=== PATIENT | female | born 1975 | race American Indian/Alaskan Native ===

== ENCOUNTER 2016-10-21 09:15 | Emergency (ER) | payer MEDICARE ==
[2016-10-21 09:33] VITALS: BMI 26.5
[2016-10-21 09:34] VITALS: BP 112/78; PULSE 93; RESP 18; TEMP 97.9; O2SAT 100
--- NOTE | 2016-10-21 09:57 | C.PDOC ---
History Of Present Illness 40 yo female, hx of asthma, presents with fever, cough, right ear pain. as per pt, started 2 days ago. as per pt, mild sore throat. pt has not used inhaler at home. no vomiting diarrhea or other complaints. Time Seen by Provider: 10/21/16 09:50 Chief Complaint (Nursing): Cough, Cold, Congestion Past Medical History Reviewed: Historical Data, Nursing Documentation, Vital Signs Vital Signs: Last Vital Signs Temp 97.9 F 10/21/16 09:33 Pulse 93 H 10/21/16 09:33 Resp 18 10/21/16 09:33 BP 112/78 10/21/16 09:33 Pulse Ox 100 10/21/16 09:33 - Medical History PMH: Asthma Surgical History: Cholecystectomy Family History: States: Unknown Family Hx - Social History Hx Tobacco Use: Yes Hx Alcohol Use: Yes Hx Substance Use: No - Immunization History Hx Tetanus Toxoid Vaccination: No Hx Influenza Vaccination: No Hx Pneumococcal Vaccination: No Review Of Systems Except As Marked, All Systems Reviewed And Found Negative. Constitutional: Positive for: Fever ENT: Positive for: Ear Pain (right) Respiratory: Positive for: Cough Physical Exam - Physical Exam Appears: Well, No Acute Distress Skin: Normal Color, Warm, Dry Eye(s): bilateral: Normal Inspection, PERRL, EOMI Ear(s): Right: TM Erythema Nose: Normal Throat: Erythema, No Exudate Neck: Normal Cardiovascular: Rhythm Regular Respiratory: Normal Breath Sounds Gastrointestinal/Abdominal: Normal Exam, Soft, No Tenderness, No Guarding, No Rebound Back: Normal Inspection Extremity: Normal ROM ED Course And Treatment O2 Sat by Pulse Oximetry: 100 Medical Decision Making Medical Decision Making: tristan tx om - pt well appearing, on video chat in er, ambulatory, speaking full sentences. lungs clear, no wheezing. Disposition - Disposition Disposition: HOME/ ROUTINE Disposition Time: 09:56 Condition: STABLE Additional Instructions: please follow up with your doctor. return to er withworsening symptoms or concerns. Prescriptions: Azithromycin [Zithromax] 250 mg PO DAILY #4 tab - Clinical Impression Clinical Impression: Upper respiratory infection, Otitis media
== END 2016-10-21 10:13 | disposition home or self-care (01) ==
LOC: C.ER 09:15
DX: J06.9 Acute upper respiratory infection, unspecified (principal); H66.91 Otitis media, unspecified, right ear; Z72.0 Tobacco use

== ENCOUNTER 2018-07-23 16:07 | Emergency (ER) | payer MEDICAID, MEDICARE ==
[2018-07-23 16:07] VITALS: BMI 26.5
[2018-07-23] MEDS ORDERED: SODIUM CHLORIDE 0.9% IV ONE (16:30)
[2018-07-23] MEDS ORDERED: Atropine-Diphenoxylate 0.025-2.5 mg Tab PO STA (16:31)
--- NOTE | 2018-07-23 16:32 | C.PDOC ---
History Of Present Illness 42 years old female presents to ED for complaints of cramping abdominal pain associated with nausea, vomiting, watery diarrhea, fever and chills that began today at 5AM. Denies any other complaints. <RickieAlyssa - Last Filed: 07/23/18 18:49> History Per: Patient History/Exam Limitations: no limitations Onset/Duration Of Symptoms: Hrs Current Symptoms Are (Timing): Still Present Location Of Pain/Discomfort: Diffuse Radiation Of Pain To:: None Associated Symptoms: Fever, Chills, Nausea, Vomiting, Diarrhea. denies: Urinary Symptoms Exacerbating Factors: None Alleviating Factors: None Last Bowel Movement: Today Recent travel outside of the [place]: No Abnormal Vaginal Bleeding: No <Alyssa Damian - Last Filed: 07/23/18 18:49> <Nancy May - Last Filed: 07/23/18 21:33> Time Seen by Provider: 07/23/18 16:22 Chief Complaint (Nursing): Abdominal Pain Past Medical History Reviewed: Historical Data, Nursing Documentation, Vital Signs Vital Signs: Last Vital Signs Temp 97.4 F L 07/23/18 16:17 Pulse 76 07/23/18 16:17 Resp 16 07/23/18 16:17 BP 157/96 H 07/23/18 16:17 Pulse Ox 100 07/23/18 16:17 - Medical History PMH: Asthma Denies: Chronic Kidney Disease Surgical History: Cholecystectomy Family History: States: Unknown Family Hx - Social History Hx Tobacco Use: Yes Hx Alcohol Use: Yes Hx Substance Use: Yes - Immunization History Hx Tetanus Toxoid Vaccination: Yes Hx Influenza Vaccination: No Hx Pneumococcal Vaccination: No <RickieAlyssa - Last Filed: 07/23/18 18:49> Vital Signs: Last Vital Signs Temp 97.7 F 07/23/18 18:52 Pulse 68 07/23/18 19:15 Resp 20 07/23/18 19:15 BP 124/72 07/23/18 19:15 Pulse Ox 97 07/23/18 19:15 <Nancy May - Last Filed: 07/23/18 21:33> Review Of Systems Constitutional: Positive for: Fever, Chills Gastrointestinal: Positive for: Nausea, Vomiting, Abdominal Pain, Diarrhea. Negative for: Constipation Genitourinary: Negative for: Dysuria Skin: Negative for: Rash Neurological: Negative for: Weakness, Numbness <Alyssa Damian - Last Filed: 07/23/18 18:49> Physical Exam - Physical Exam Appears: Non-toxic, In Acute Distress (Mild ) Skin: Normal Color, Warm, Dry, No Rash Head: Atraumatic, Normacephalic Eye(s): bilateral: Normal Inspection, PERRL, EOMI Oral Mucosa: Moist Neck: Normal ROM, Supple Chest: Symmetrical, No Tenderness Cardiovascular: Rhythm Regular, No Murmur Respiratory: Normal Breath Sounds, No Rales, No Rhonchi, No Wheezing, Other (NARD) Gastrointestinal/Abdominal: Normal Exam, Bowel Sounds (Active ), Soft, No Tenderness Extremity: Normal ROM Extremity: Bilateral: Atraumatic, Normal Color And Temperature, Normal ROM Pulses: Left Radial: Normal, Right Radial: Normal Neurological/Psych: Oriented x3, Normal Speech <Alyssa Damian - Last Filed: 07/23/18 18:49> ED Course And Treatment - Laboratory Results Result Diagrams: 07/23/18 16:44 07/23/18 16:44 O2 Sat by Pulse Oximetry: 100 (RA) Pulse Ox Interpretation: Normal - Other Rad CXR X-Ray: Viewed By Me, Read By Radiologist Interpretation: Date of service: 07/23/2018. HISTORY: Fever. COMPARISON: No prior. TECHNIQUE: Chest PA and lateral. FINDINGS: LUNGS: No active pulmonary disease. PLEURA: No significant pleural effusion identified. No pneumothorax apparent. CARDIOVASCULAR: No aortic atherosclerotic calcification present. Normal cardiac size. No pulmonary vascular congestion. OSSEOUS STRUCTURES: No significant abnormalities. VISUALIZED UPPER ABDOMEN: Normal. OTHER FINDINGS: None. IMPRESSION: No acute cardiopulmonary disease a ppreciated. <Alyssa Damian - Last Filed: 07/23/18 18:49> - Laboratory Results Result Diagrams: 07/23/18 16:44 07/23/18 16:44 ECG: Interpreted By Me, Viewed By Me ECG Rhythm: Sinus Rhythm (54) Pulse Ox Interpretation: Normal Reevaluation Time: 21:24 Reassessment Condition: Improved <Nancy May - Last Filed: 07/23/18 21:33> Progress - Re-Evaluation Re-evaluation Note: 07/23/18 18:25 NOW REPORTS R FLANK PAIN X 1 WEEK. HO KIDNEY STONES. PS WAS IGNORING IT BUT NOW W GEN BODY PAIN. +DYSURIA. <Alyssa Damian - Last Filed: 07/23/18 18:49> Medical Decision Making Medical Decision Making: Plan: * Morphine * IV Fluids * Lomotil * Zofran * Blood work * CXR * Urinalysis * Flu AB Swab <Alyssa Damian - Last Filed: 07/23/18 18:49> Medical Decision Making: Upon provider reevaluation patient is feeling better, is medically stable, and requires no further treatment in the ED at this time. Patient will be discharged home with Rx for macrobid, zofran . Counseling was provided and all questions were answered regarding diagnosis and need for follow up with the referred clinic. There is agreement to discharge plan. Return if symptoms persist or worsen. <Nancy May - Last Filed: 07/23/18 21:33> Disposition - Disposition Disposition Time: 19:00 <Alyssa Damian - Last Filed: 07/23/18 18:49> Counseled Patient/Family Regarding: Studies Performed, Diagnosis, Need For Followup, Rx Given <Nancy May - Last Filed: 07/23/18 21:33> - Disposition Referrals: [facility] [Outside] [facility] [Outside] Disposition: HOME/ ROUTINE Condition: STABLE Additional Instructions: Please return if symptoms recur Prescriptions: Nitrofurantoin Macrocrystals [Macrobid] 1 cap PO BID #14 cap Ondansetron ODT [Zofran ODT] 1 odt PO BID PRN #6 odt PRN Reason: Nausea/Vomiting Instructions: Urinary Tract Infection, Adult (DC), Uterine Fibroids (DC) Forms: [facility] (Cameroonian), Work Excuse - Clinical Impression Clinical Impression: Flank pain, Abdominal pain, Fibroids - Scribe Statement The provider has reviewed the documentation as recorded by the Maiteibhaleigh Gore All medical record entries made by the Scribe were at my direction and personally dictated by me. I have reviewed the chart and agree that the record accurately reflects my personal performance of the history, physical exam, medical decision making, and the department course for this patient. I have also personally directed, reviewed, and agree with the discharge instructions and disposition. <RickieAlyssa - Last Filed: 07/23/18 18:49> Physician Patient Turnover Patient Signed Over To: Nancy May Handoff Comments: FU CT, DISPO <Alyssa Damian - Last Filed: 07/23/18 18:49>
[2018-07-23 16:47] LABS: BASO % 0.3 % (0.0-2.0); HEMOGLOBIN 13.7 g/dL (11.0-16.0); LYMPH # 0.5 K/uL (1.0-4.3); LYMPH % 5.5 % (20.0-40.0); MEAN CELL VOLUME 91.8 fL (81.0-99.0); MEAN CORPUSCULAR HEMOGLOBIN 30.2 pg (27.0-31.0); MEAN CORPUSCULAR HGB CONC 32.9 g/dL (33.0-37.0); MEAN PLATELET VOLUME 8.8 fL (7.2-11.7); MONO # 0.3 K/uL (0.0-0.8); MONO % 3.7 % (0.0-10.0); NEUT # 7.8 K/uL (1.8-7.0); NEUT % 90.5 % (50.0-75.0); PLATELET COUNT 258 K/uL (130-400); RBC 4.55 Mil/uL (3.80-5.20); RED CELL DISTRIBUTION WIDTH 15.8 % (11.5-14.5); WHITE BLOOD COUNT 8.6 K/uL (4.8-10.8)
[2018-07-23] MEDS ORDERED: Sodium Chloride 0.9% 1,000 ML ONE (16:49)
[2018-07-23] MEDS ORDERED: Atropine-Diphenoxylate 0.025-2.5 mg Tab ONE (16:49)
[2018-07-23 17:00] LABS: SQUAMOUS EPITHIAL 11 /hpf (0-5); URINE BACTERIA OCC (<OCC); URINE BILIRUBIN NEGATIVE (NEGATIVE); URINE BLOOD 2+ (NEGATIVE); URINE CLARITY Hazy (Clear); URINE COLOR Yellow (YELLOW); URINE GLUCOSE (UA) NORMAL (Normal); URINE LEUKOCYTE ESTERASE NEG Leu/uL (Negative); URINE PROTEIN 2+ mg/dL (NEGATIVE); URINE UROBILINOGEN NORMAL mg/dL (0.2-1.0)
[2018-07-23 17:01] LABS: ALB/GLOB RATIO 1.3 (1.0-2.1); ALBUMIN 4.4 g/dL (3.5-5.0); BLOOD UREA NITROGEN 11 mg/dL (7-17); CALCIUM 8.5 mg/dl (8.6-10.4); GFR NON-AFRICAN AMERICAN > 60
[2018-07-23 17:06] LABS: ALT/SGPT 26 U/L (9-52); AST/SGOT 33 U/L (14-36)
--- NOTE | 2018-07-23 17:13 | RAD ---
Date of service: 07/23/2018 HISTORY: Fever COMPARISON: No prior. TECHNIQUE: Chest PA and lateral FINDINGS: LUNGS: No active pulmonary disease. PLEURA: No significant pleural effusion identified. No pneumothorax apparent. CARDIOVASCULAR: No aortic atherosclerotic calcification present. Normal cardiac size. No pulmonary vascular congestion. OSSEOUS STRUCTURES: No significant abnormalities. VISUALIZED UPPER ABDOMEN: Normal. OTHER FINDINGS: None. IMPRESSION: No acute cardiopulmonary disease appreciated.
[2018-07-23 17:26] LABS: BANDS 4 % (0-2); LYMPHOCYTE 2 % (20-40); MONOCYTE 2 % (0-10); NEUTROPHIL 92 % (50-75); TOTAL CELLS COUNTED 100
[2018-07-23 17:27] LABS: PLATELET ESTIMATE NORMAL (NORMAL)
[2018-07-23 18:23] LABS: INR 1.1; PROTHROMBIN TIME 12.4 SECONDS (9.7-12.2)
[2018-07-23 18:38] LABS: VENOUS BLOOD GAS BASE EXCESS -15.7 mmol/L (0.0-2.0); VENOUS BLOOD GAS PCO2 32 mmHg (40-60); VENOUS BLOOD GAS PO2 54 mm/Hg (30-55); VENOUS BLOOD PH 7.17 (7.32-7.43)
[2018-07-23] MEDS ORDERED: Iohexol 240 (50 ml) ONE (18:42)
[2018-07-23 18:53] VITALS: TEMP 97.7
[2018-07-23] MEDS ORDERED: Iodixanol 320 MG/ML 100 ML BOTTLE IV ONE (18:58)
[2018-07-23] MEDS ORDERED: Sodium Chloride 0.9% 1,000 ML IV ONE (19:20)
[2018-07-23 20:33] VITALS: PULSE 68
[2018-07-23 22:03] VITALS: BP 116/78; RESP 18; O2SAT 100
--- NOTE | 2018-07-24 10:56 | CT ---
Date of service: 07/23/2018 PROCEDURE: CT Abdomen and Pelvis with contrast HISTORY: R FLANK PAIN, FEVER COMPARISON: None. TECHNIQUE: Contrast dose: Radiation dose: Total exam DLP = 850.47 mGy-cm. This CT exam was performed using one or more of the following dose reduction techniques: Automated exposure control, adjustment of the mA and/or kV according to patient size, and/or use of iterative reconstruction technique. FINDINGS: LOWER THORAX: Small hiatal hernia. LIVER: Unremarkable. No gross lesion or ductal dilatation. GALLBLADDER AND BILE DUCTS: Cholecystectomy. PANCREAS: Unremarkable. No gross lesion or ductal dilatation. SPLEEN: Two peripherally calcified nonspecific cystic lesions in the spleen. ADRENALS: Unremarkable. No mass. KIDNEYS AND URETERS: Unremarkable. No hydronephrosis. No solid mass. VASCULATURE: Unremarkable. No aortic aneurysm. No aortic atherosclerotic calcification or mural plaque present. BOWEL: Unremarkable. No obstruction. No gross mural thickening. APPENDIX: Normal appendix. PERITONEUM: Unremarkable. No free fluid. No free air. LYMPH NODES: Unremarkable. No enlarged lymph nodes. BLADDER: Unremarkable. REPRODUCTIVE: Leiomyomatous uterus. Suspect small dermoid in the right ovary. This measures roughly 3 centimeters. Minimal free fluid in the pelvis. BONES: No acute fracture. OTHER FINDINGS: None. IMPRESSION: Two peripherally calcified nonspecific cystic lesions in the spleen. Leiomyomatous uterus. Suspect small dermoid in the right ovary. This measures roughly 3 centimeters. Minimal free fluid in the pelvis.
--- NOTE | 2018-07-24 19:35 | CARD ---
APPROVED REPORT Date of service: 07/23/2018 EKG Measurement Heart [id number] <Conclusion> Sinus bradycardia Otherwise normal ECG
== END 2018-07-23 21:30 | disposition home or self-care (01) ==
LOC: C.ER 16:07
DX: D25.9 Leiomyoma of uterus, unspecified (principal); R10.9 Unspecified abdominal pain; Z72.0 Tobacco use
CPT/HCPCS: 71046; 74177; 80053; 81001; 82803; 83735; 84100; 85025; 85610; 85730; 87040; 87086; 87804; 93005; 96372; 96374; 96375; 99285; J0780; J2270; J2405; J7030; Q9967

== ENCOUNTER 2018-12-23 07:06 | Inpatient (IN) | payer MEDICARE ==
[2018-12-23 07:21] VITALS: BMI 27.4
[2018-12-23] MEDS ORDERED: Sodium Chloride 0.9% 1,000 ML IV STA ×2 (07:54→08:59)
[2018-12-23] MEDS ORDERED: Sodium Chloride 0.9% 1,000 ML ONE ×2 (08:02→08:36)
[2018-12-23 08:41] LABS: BASO # 0.1 K/uL (0.0-0.2); BASO % 0.5 % (0.0-2.0); HEMOGLOBIN 13.3 g/dL (11.0-16.0); LYMPH # 1.5 K/uL (1.0-4.3); LYMPH % 12.5 % (20.0-40.0); MEAN CELL VOLUME 90.7 fL (81.0-99.0); MEAN CORPUSCULAR HEMOGLOBIN 30.9 pg (27.0-31.0); MEAN CORPUSCULAR HGB CONC 34.1 g/dL (33.0-37.0); MEAN PLATELET VOLUME 8.8 fL (7.2-11.7); MONO # 0.4 K/uL (0.0-0.8); MONO % 3.8 % (0.0-10.0); NEUT # 9.8 K/uL (1.8-7.0); NEUT % 83.2 % (50.0-75.0); NRBC % 0.1 % (0.0-2.0); RBC 4.3 Mil/uL (3.80-5.20); RED CELL DISTRIBUTION WIDTH 16.8 % (11.5-14.5); WHITE BLOOD COUNT 11.7 K/uL (4.8-10.8)
[2018-12-23 08:47] LABS: HCG,QUALITATIVE URINE NEGATIVE (NEGATIVE)
[2018-12-23 08:49] LABS: ALB/GLOB RATIO 1.5 (1.0-2.1); ALBUMIN 5.4 g/dL (3.5-5.0); ALT/SGPT 17 U/L (9-52); AST/SGOT 35 U/L (14-36); BLOOD UREA NITROGEN 9 mg/dL (7-17); CALCIUM 9.7 mg/dl (8.6-10.4); GFR NON-AFRICAN AMERICAN > 60; LIPASE 167 U/L (23-300)
[2018-12-23 08:59] LABS: SQUAMOUS EPITHIAL 1 /hpf (0-5); URINE AMORPHOUS SEDIMENT MODERATE /ul (<OCC); URINE BILIRUBIN NEGATIVE (NEGATIVE); URINE BLOOD 2+ (NEGATIVE); URINE CLARITY Turbid (Clear); URINE COLOR Yellow (YELLOW); URINE GLUCOSE (UA) NORMAL (Normal); URINE LEUKOCYTE ESTERASE NEG Leu/uL (Negative); URINE PROTEIN 2+ mg/dL (NEGATIVE); URINE UROBILINOGEN NORMAL mg/dL (0.2-1.0)
[2018-12-23] MEDS ORDERED: Belladonna-Phenobarbital PO STA (09:21)
--- NOTE | 2018-12-23 09:21 | C.PDOC ---
History Of Present Illness 43 y/o female presents to ED complaining of cramping abdominal pain that started at 3am today. States she drank one glass of wine last night. Reports that she woke up at 3am and had an episode of vomiting and had diarrhea later in the morning. She denies fever, chills, dysuria, hematuria, back pain, or other complaints. Time Seen by Provider: 12/23/18 07:10 Chief Complaint (Nursing): Abdominal Pain History Per: Patient History/Exam Limitations: no limitations Onset/Duration Of Symptoms: Hrs Current Symptoms Are (Timing): Still Present Past Medical History Reviewed: Historical Data, Nursing Documentation, Vital Signs Vital Signs: Last Vital Signs Temp 98 F 12/23/18 07:15 Pulse 68 12/23/18 07:15 Resp 18 12/23/18 07:15 BP 147/73 12/23/18 07:15 Pulse Ox 97 12/23/18 07:15 Primary Care Provider: FAMILY PROVIDER,NO - Medical History PMH: Asthma Denies: Chronic Kidney Disease Surgical History: Appendectomy Denies: Cholecystectomy (pt denies) Family History: States: No Known Family Hx - Social History Hx Tobacco Use: Yes Hx Alcohol Use: Yes Hx Substance Use: Yes - Immunization History Hx Tetanus Toxoid Vaccination: Yes Hx Influenza Vaccination: No Hx Pneumococcal Vaccination: No Review Of Systems Except As Marked, All Systems Reviewed And Found Negative. Constitutional: Negative for: Fever, Chills Gastrointestinal: Positive for: Vomiting, Abdominal Pain (cramping), Diarrhea. Negative for: Nausea Genitourinary: Negative for: Dysuria, Hematuria Musculoskeletal: Negative for: Back Pain Physical Exam - Physical Exam Appears: Non-toxic, No Acute Distress, Other (dry heaving, actively vomiting) Skin: Warm, Dry Head: Normacephalic Eye(s): bilateral: Normal Inspection Oral Mucosa: Moist Neck: Supple Cardiovascular: Rhythm Regular, No Murmur Respiratory: Normal Breath Sounds, No Rales, No Rhonchi, No Wheezing Gastrointestinal/Abdominal: Soft, No Tenderness, No Guarding, No Rebound Rectal: Blood Streaked Stool, Hemorrhoids (external) Extremity: Bilateral: Normal Color And Temperature Neurological/Psych: Oriented x3, Normal Speech ED Course And Treatment - Laboratory Results Result Diagrams: 12/23/18 08:27 12/23/18 08:27 Lab Results: Total Bilirubin 0.5 mg/dL (0.2-1.3) 12/23/18 08:27 AST 35 U/L (14-36) 12/23/18 08:27 ALT 17 U/L (9-52) 12/23/18 08:27 Alkaline Phosphatase 95 U/L (38-126) 12/23/18 08:27 Total Protein 9.0 g/dL (6.3-8.3) H 12/23/18 08:27 Albumin 5.4 g/dL (3.5-5.0) H D 12/23/18 08:27 Globulin 3.7 gm/dL (2.2-3.9) 12/23/18 08:27 Albumin/Globulin Ratio 1.5 (1.0-2.1) 12/23/18 08: Lipase 167 U/L (23-300) 12/23/18 08:27 Urine Color Yellow (YELLOW) 12/23/18 08:27 Urine Clarity Turbid (Clear) 12/23/18 08:27 Urine pH 5.0 (5.0-8.0) 12/23/18 08:27 Ur Specific [place] 1.030 (1.003-1.030) 12/23/18 08:27 Urine Protein 2+ mg/dL (NEGATIVE) H 12/23/18 08:27 Urine Glucose (UA) Normal mg/dL (Normal) 12/23/18 08:27 Urine Ketones 1+ mg/dL (NEGATIVE) H 12/23/18 08:27 Urine Blood 2+ (NEGATIVE) H 12/23/18 08:27 Urine Nitrate Negative (NEGATIVE) 12/23/18 08:27 Urine Bilirubin Negative (NEGATIVE) 12/23/18 08:27 Urine Urobilinogen Normal mg/dL (0.2-1.0) 12/23/18 08:27 Ur Leukocyte Esterase Neg Aminata/uL (Negative) 12/23/18 08:27 Urine RBC (Auto) 43 /hpf (0-3) H 12/23/18 08:27 Ur Squamous Epith Cells 1 /hpf (0-5) 12/23/18 08:27 Amorphous Sediment Moderate /ul (<OCC) H 12/23/18 08:27 Urine HCG, Qual Negative (NEGATIVE) 12/23/18 08:27 Urine HCG, Qual Negative (NEGATIVE) 12/23/18 08:27 O2 Sat by Pulse Oximetry: 97 (RA) Pulse Ox Interpretation: Normal Progress Note: Patient given fluids, zofran, still active vomiting, given reglan. Patient c/o abdominal crams and multiple episode of diarrhea mixed with blood. Patient was given 3L IVF boluses. On re-evaluation, patient is not feeling better, however she stopped vomiting, but still has diarrhea. Gave po. On re-evaluation she still c/o severe cramps. CT abdomenwith IV contrast ordered and pos for pancolitis. Flagyl and Cipro IV started. case was d/w and patient was accepted to [facility]. Disposition - Disposition Disposition: HOSPITALIZED Disposition Time: 14:16 Condition: FAIR - Clinical Impression Clinical Impression: Abdominal pain, Diarrhea, Pancolitis, Vomiting - PA / [employer] / Resident Statement MD/DO has reviewed & agrees with the documentation as recorded. - Scribe Statement The provider has reviewed the documentation as recorded by the Scribhaleigh White All medical record entries made by the Scribe were at my direction and personally dictated by me. I have reviewed the chart and agree that the record accurately reflects my personal performance of the history, physical exam, medical decision making, and the department course for this patient. I have also personally directed, reviewed, and agree with the discharge instructions and disposition. Decision To Admit - Pt Status Changed To: Hospital Disposition Of: Inpatient - Admit Certification Admit to Inpatient:: After my assessment, the patient will require hospitalization for at least two midnights. This is because of the severity of symptoms shown, intensity of services needed, and/or the medical risk in this patient being treated as an outpatient. - InPatient: Physician Admission Certification:: patientb will need IV antibiotics for more than 2 days - . Bed Request Type: Regular Admitting Physician: Patricia Graves Patient Diagnosis: Abdominal pain, Diarrhea, Pancolitis, Vomiting
[2018-12-23] MEDS ORDERED: Belladonna-Phenobarbital ONE (09:26)
[2018-12-23] MEDS ORDERED: Lactated Ringer's 1,000 ML IV ONE (10:54)
[2018-12-23] MEDS ORDERED: Lactated Ringer's 1,000 ML ONE (11:16)
[2018-12-23] MEDS ORDERED: Iodixanol 320 MG/ML 100 ML BOTTLE IV ONE (12:42)
--- NOTE | 2018-12-23 13:56 | CT ---
Date of service: 12/23/2018 PROCEDURE: CT Abdomen and Pelvis with contrast HISTORY: ABD PAIN COMPARISON: Comparison is made to the previous study dated 07/23/2018 TECHNIQUE: Contrast dose: 100 mL of Visipaque 320 intravenously. Radiation dose: Total exam DLP = 467.58 mGy-cm. This CT exam was performed using one or more of the following dose reduction techniques: Automated exposure control, adjustment of the mA and/or kV according to patient size, and/or use of iterative reconstruction technique. FINDINGS: LOWER THORAX: Unremarkable. LIVER: Hepatomegaly and mild diffuse low-attenuation of the liver are again noted. GALLBLADDER AND BILE DUCTS: Status post cholecystectomy. PANCREAS: Unremarkable. No gross lesion or ductal dilatation. SPLEEN: Again noted 2 adjacent cystic lesions contains foci of calcification at the peripheral portion in the spleen with the largest lesion measures 3.2 x 3.2 centimeter. ADRENALS: Unremarkable. No mass. KIDNEYS AND URETERS: Unremarkable. No hydronephrosis. No solid mass. VASCULATURE: Unremarkable. No aortic aneurysm. No aortic atherosclerotic calcification or mural plaque present. BOWEL: There is a suspicious for diffuse large bowel wall thickening suggestive of pancolitis. No evidence of bowel obstruction. APPENDIX: No evidence of appendicitis. PERITONEUM: There is a trace amount of free fluid in the pelvis noted. No evidence of free air. LYMPH NODES: Unremarkable. No enlarged lymph nodes. BLADDER: The urinary bladder is not distended therefore cannot be evaluated. REPRODUCTIVE: Again noted is complex mass lesion at the right adnexa likely represent dermoid cyst measures 3.3 centimeter. BONES: No acute fracture. OTHER FINDINGS: None. IMPRESSION: Findings suggestive of pancolitis. Please correlate clinically. No evidence of other acute pathology in the abdomen and pelvis.
[2018-12-23] MEDS ORDERED: Ciprofloxacin 400mg/200ml D5W 400 MG/200 ML BAG IV STA (14:14)
[2018-12-23] MEDS ORDERED: metroNIDAZOLE IV 500 mg/100 ml 500 MG/100 ML BAG IV STA (14:14)
[2018-12-23] MEDS ORDERED: metroNIDAZOLE IV 500 mg/100 ml 500 MG/100 ML BAG ONE (14:23)
[2018-12-23] MEDS: Sodium Chloride 0.9% 1,000 ML IV SCH (17:17)
--- NOTE | 2018-12-23 17:30 | CP.PCM.HP ---
Past Patient History - Infectious Disease Hx of Infectious Diseases: None - Past Social History Smoking Status: Light Smoker < 10 Cigarettes Daily - CARDIAC Hx Cardiac Disorders: No - PULMONARY Hx Asthma: Yes - NEUROLOGICAL Hx Neurological Disorder: No - HEENT Hx HEENT Problems: No - RENAL Hx Chronic Kidney Disease: No - ENDOCRINE/METABOLIC Hx Endocrine Disorders: No - HEMATOLOGICAL/ONCOLOGICAL Hx Blood Disorders: No - INTEGUMENTARY Hx Dermatological Problems: No - MUSCULOSKELETAL/RHEUMATOLOGICAL Hx Musculoskeletal Disorders: No - GASTROINTESTINAL Hx Gastrointestinal Disorders: Yes Hx Ulcer: Yes - PSYCHIATRIC Hx Substance Use: Yes - SURGICAL HISTORY Hx Appendectomy: Yes Hx Cholecystectomy: No (pt denies) - ANESTHESIA Hx Anesthesia: Yes Hx Anesthesia Reactions: No Meds Allergies/Adverse Reactions: Allergies Allergy/AdvReac Type Severity Reaction Status Date / Time aspirin Allergy ANGIOEDEMA Verified 12/23/18 07:19 Penicillins Allergy Verified 12/23/18 07:19 Physical Exam - Constitutional Appears: Well - Head Exam Head Exam: ATRAUMATIC, NORMAL INSPECTION, NORMOCEPHALIC - Eye Exam Eye Exam: EOMI, Normal appearance, PERRL Pupil Exam: NORMAL ACCOMODATION, PERRL - ENT Exam ENT Exam: Mucous Membranes Moist, Normal Exam - Neck Exam Neck exam: Positive for: Normal Inspection - Respiratory Exam Respiratory Exam: Decreased Breath Sounds - Cardiovascular Exam Cardiovascular Exam: REGULAR RHYTHM, +S1, +S2 - GI/Abdominal Exam GI & Abdominal Exam: Diminished Bowel Sounds, Soft - Rectal Exam Rectal Exam: Deferred - Neurological Exam Neurological exam: Oriented x3 Results - Vital Signs Recent Vital Signs: Last Vital Signs Temp 98.7 F 12/23/18 15:06 Pulse 60 12/23/18 15:06 Resp 20 12/23/18 15:06 BP 150/90 12/23/18 15:06 Pulse Ox 100 12/23/18 15:06 - Labs Result Diagrams: 12/23/18 08:27 12/23/18 08:27 Labs: Laboratory Results - last 24 hr 12/23/18 12/23/18 12/23/18 08:27 08:27 08:27 WBC 11.7 H RBC 4.30 Hgb 13.3 Hct 39.0 MCV 90.7 MCH 30.9 MCHC 34.1 RDW 16.8 H Plt Count 338 MPV 8.8 Neut % (Auto) 83.2 H Lymph % (Auto) 12.5 L [place] % (Auto) 3.8 Eos % (Auto) 0.0 Baso % (Auto) 0.5 Neut # (Auto) 9.8 H Lymph # (Auto) 1.5 [place] # (Auto) 0.4 Eos # (Auto) 0.0 Baso # (Auto) 0.1 Sodium 140 Potassium 4.1 Chloride 109 H Carbon Dioxide 15 L Anion Gap 20 BUN 9 Creatinine 0.6 L Est GFR ( Amer) > 60 Est GFR (Non-Af Amer) > 60 Random Glucose 123 H Calcium 9.7 Total Bilirubin 0.5 AST 35 ALT 17 Alkaline Phosphatase 95 Total Protein 9.0 H Albumin 5.4 H D Globulin 3.7 Albumin/Globulin Ratio 1.5 Lipase 167 Urine Color Yellow Urine Clarity Turbid Urine pH 5.0 Ur Specific [place] 1.030 Urine Protein 2+ H Urine Glucose (UA) Normal Urine Ketones 1+ H Urine Blood 2+ H Urine Nitrate Negative Urine Bilirubin Negative Urine Urobilinogen Normal Ur Leukocyte Esterase Neg Urine RBC (Auto) 43 H Ur Squamous Epith Cells 1 Amorphous Sediment Moderate H Urine HCG, Qual Negative Alcohol, Quantitative < 10
[2018-12-23] MEDS: metroNIDAZOLE IV 500 mg/100 ml 500 MG/100 ML BAG IVPB SCH (22:23)
[2018-12-24] MEDS: Ciprofloxacin 400mg/200ml D5W 400 MG/200 ML BAG IVPB SCH ×2 (01:59→13:38)
[2018-12-24] MEDS: metroNIDAZOLE IV 500 mg/100 ml 500 MG/100 ML BAG IVPB SCH ×3 (05:55→21:14)
[2018-12-24 06:45] LABS: BARBITURATES, UR NEGATIVE (NEGATIVE); BENZODIAZEPINES, UR NEGATIVE (NEGATIVE)
[2018-12-24 06:47] LABS: OPIATES, UR POSITIVE (NEGATIVE); PHENCYCLIDINE, UR POSITIVE (NEGATIVE)
[2018-12-24] MEDS: Sodium Chloride 0.9% 1,000 ML IV SCH ×2 (08:26→14:15)
[2018-12-24 08:27] LABS: BASO % 0.3 % (0.0-2.0); LYMPH # 1.6 K/uL (1.0-4.3); LYMPH % 13.9 % (20.0-40.0); MEAN CELL VOLUME 90.4 fL (81.0-99.0); MEAN CORPUSCULAR HEMOGLOBIN 30.7 pg (27.0-31.0); MEAN CORPUSCULAR HGB CONC 33.9 g/dL (33.0-37.0); MEAN PLATELET VOLUME 8.7 fL (7.2-11.7); MONO % 8.3 % (0.0-10.0); NEUT # 9.1 K/uL (1.8-7.0); NEUT % 77.5 % (50.0-75.0); RBC 3.61 Mil/uL (3.80-5.20); RED CELL DISTRIBUTION WIDTH 16.8 % (11.5-14.5); WHITE BLOOD COUNT 11.7 K/uL (4.8-10.8)
[2018-12-24 08:33] LABS: HEMOGLOBIN 11.1 g/dL (11.0-16.0)
[2018-12-24 08:54] LABS: ALB/GLOB RATIO 1.3 (1.0-2.1); ALBUMIN 4.1 g/dL (3.5-5.0); ALT/SGPT 23 U/L (9-52); AST/SGOT 35 U/L (14-36); BLOOD UREA NITROGEN 10 mg/dL (7-17); CALCIUM 8.5 mg/dl (8.6-10.4); GFR NON-AFRICAN AMERICAN > 60
[2018-12-24] MEDS: Enoxaparin 40 mg Syringe SC SCH (09:15)
[2018-12-24] MEDS: Potassium & Sodium Phosphate PO SCH ×2 (09:15→17:05)
--- NOTE | 2018-12-24 09:18 | CP.PCM.CON ---
<Maddy Thomas - Last Filed: 12/24/18 09:12> History of Present Illness - History of Present Illness History of Present Illness: GI Fellow PGY5 Consult Note 43 y/o female with no significant pmhx presents to ED complaining of cramping abdominal pain that started at 2am yesterday. States she drank one glass of wine the night last night. Reports that she woke up and had an episodes of nausea/vomiting and had diarrhea later in the morning. She reports multiple episodes of bloody BM but nothing overnight. She is still having nausea and does not want to eat. She reports being at a cookout a day prior and eating hamburgers. No one else is sick, no recent travel, no sick contacts. She denies fever, chills, dysuria, hematuria, back pain, or other complaints. ROS: A 12pt ROS was negative except as above PmHx: As stated in HPI PshX: denies SH: social etoh, denies drugs, tobacco FH: neg for colon cancer Past Patient History - Infectious Disease Hx of Infectious Diseases: None - Past Medical History & Family History Past Medical History?: Yes - Past Social History Smoking Status: Light Smoker < 10 Cigarettes Daily - CARDIAC Hx Cardiac Disorders: No - PULMONARY Hx Asthma: Yes - NEUROLOGICAL Hx Neurological Disorder: No - HEENT Hx HEENT Problems: No - RENAL Hx Chronic Kidney Disease: No - ENDOCRINE/METABOLIC Hx Endocrine Disorders: No - HEMATOLOGICAL/ONCOLOGICAL Hx Blood Disorders: No - INTEGUMENTARY Hx Dermatological Problems: No - MUSCULOSKELETAL/RHEUMATOLOGICAL Hx Musculoskeletal Disorders: No - GASTROINTESTINAL Hx Gastrointestinal Disorders: Yes Hx Ulcer: Yes - GENITOURINARY/GYNECOLOGICAL Hx Genitourinary Disorders: No - PSYCHIATRIC Hx Substance Use: Yes - SURGICAL HISTORY Hx Appendectomy: Yes Hx Cholecystectomy: No (pt denies) - ANESTHESIA Hx Anesthesia: Yes Hx Anesthesia Reactions: No Meds Allergies/Adverse Reactions: Allergies Allergy/AdvReac Type Severity Reaction Status Date / Time aspirin Allergy ANGIOEDEMA Verified 12/23/18 07:19 Penicillins Allergy Verified 12/23/18 07:19 - Medications Medications: Current Medications Enoxaparin Sodium (Lovenox) 40 mg SC DAILY [facility] Metronidazole (Flagyl) 500 mg in 100 mls @ 100 mls/hr IVPB Q8H [facility]; Protocol Last Admin: 12/24/18 05:55 Dose: 100 mls/hr Sodium Chloride (Sodium Chloride 0.9%) 1,000 mls @ 100 mls/hr IV .Q10H [facility] Last Admin: 12/24/18 08:26 Dose: 100 mls/hr Ciprofloxacin (Cipro 400mg/200ml Dsw) 400 mg in 200 mls @ 133 mls/hr IVPB Q12H [facility]; Protocol Last Admin: 12/24/18 01:59 Dose: 133 mls/hr Morphine Sulfate (Morphine) 2 mg IVP Q4 PRN PRN Reason: Pain, moderate (4-7) Last Admin: 12/24/18 08:24 Dose: 2 mg Ondansetron HCl (Zofran Inj) 4 mg IVP Q6 PRN PRN Reason: Nausea/Vomiting Last Admin: 12/23/18 22:25 Dose: 4 mg Pantoprazole Sodium (Protonix Inj) 40 mg IVP Q12H [facility] Last Admin: 12/24/18 05:55 Dose: 40 mg Potassium Phos/Sodium Phos (Neutra-Phos) 1 pkt PO BID [facility] Stop: 12/27/18 10:01 Physical Exam - Constitutional Appears: Non-toxic, No Acute Distress - Head Exam Head Exam: ATRAUMATIC, NORMAL INSPECTION, NORMOCEPHALIC - Eye Exam Eye Exam: EOMI, Normal appearance, PERRL Pupil Exam: PERRL - ENT Exam ENT Exam: Mucous Membranes Moist, Normal Exam - Respiratory Exam Respiratory Exam: Clear to Auscultation Bilateral, NORMAL BREATHING PATTERN - Cardiovascular Exam Cardiovascular Exam: REGULAR RHYTHM, RRR, +S1, +S2 - GI/Abdominal Exam GI & Abdominal Exam: Normal Bowel Sounds, Soft, Tenderness. absent: Distended, Firm, Guarding, Organomegaly - Rectal Exam Rectal Exam: Deferred - Extremities Exam Extremities exam: Positive for: full ROM, normal inspection - Neurological Exam Neurological exam: Alert, Oriented x3 - Psychiatric Exam Psychiatric exam: Normal Affect, Normal Mood - Skin Skin Exam: Dry, Intact, Normal Color, Warm Results - Vital Signs Recent Vital Signs: Last Vital Signs Temp 98.1 F 12/24/18 07:00 Pulse 96 H 12/24/18 07:00 Resp 20 12/24/18 07:00 BP 135/56 L 12/24/18 07:00 Pulse Ox 100 12/24/18 07:00 - Labs Result Diagrams: 12/24/18 08:17 12/24/18 08:17 Labs: Laboratory Results - last 24 hr 12/24/18 12/24/18 12/24/18 06:05 08:17 08:17 WBC 11.7 H RBC 3.61 L Hgb 11.1 D Hct 32.6 L MCV 90.4 MCH 30.7 MCHC 33.9 RDW 16.8 H Plt Count 263 MPV 8.7 Neut % (Auto) 77.5 H Lymph % (Auto) 13.9 L [place] % (Auto) 8.3 Eos % (Auto) 0.0 Baso % (Auto) 0.3 Neut # (Auto) 9.1 H Lymph # (Auto) 1.6 [place] # (Auto) 1.0 H Eos # (Auto) 0.0 Baso # (Auto) 0.0 Sodium 135 Potassium 3.6 Chloride 104 Carbon Dioxide 23 Anion Gap 12 BUN 10 Creatinine 0.7 Est GFR ( Amer) > 60 Est GFR (Non-Af Amer) > 60 Random Glucose 119 H Calcium 8.5 L Phosphorus 2.1 L Magnesium 1.8 Total Bilirubin 1.1 AST 35 ALT 23 Alkaline Phosphatase 73 Total Protein 7.3 Albumin 4.1 Globulin 3.1 Albumin/Globulin Ratio 1.3 Urine Opiates Screen Positive H Urine Methadone Screen Negative Ur Barbiturates Screen Negative Ur Phencyclidine Scrn Positive H Ur Amphetamines Screen Negative U Benzodiazepines Scrn Negative U Oth Cocaine Metabols Negative U Cannabinoids Screen Positive H Assessment & Plan - Assessment and Plan (Free Text) Assessment: 1. Colitis-infectious 2. Abdominal pain 3. N/V/Diarrhea Plan: Continue supportive care with pain control, antiemetic IVF Clear liquid diet IV Cipro/Flagyl Stool infectious workup Will continue to monitor clinical course <Shayan Broussard Y - Last Filed: 12/24/18 10:07> Meds - Medications Medications: Current Medications Enoxaparin Sodium (Lovenox) 40 mg SC DAILY [facility] Last Admin: 12/24/18 09:15 Dose: 40 mg Metronidazole (Flagyl) 500 mg in 100 mls @ 100 mls/hr IVPB Q8H [facility]; Protocol Last Admin: 12/24/18 05:55 Dose: 100 mls/hr Sodium Chloride (Sodium Chloride 0.9%) 1,000 mls @ 100 mls/hr IV .Q10H [facility] Last Admin: 12/24/18 08:26 Dose: 100 mls/hr Ciprofloxacin (Cipro 400mg/200ml Dsw) 400 mg in 200 mls @ 133 mls/hr IVPB Q12H [facility]; Protocol Last Admin: 12/24/18 01:59 Dose: 133 mls/hr Morphine Sulfate (Morphine) 2 mg IVP Q4 PRN PRN Reason: Pain, moderate (4-7) Last Admin: 12/24/18 08:24 Dose: 2 mg Ondansetron HCl (Zofran Inj) 4 mg IVP Q6 PRN PRN Reason: Nausea/Vomiting Last Admin: 12/23/18 22:25 Dose: 4 mg Pantoprazole Sodium (Protonix Inj) 40 mg IVP Q12H [facility] Last Admin: 12/24/18 05:55 Dose: 40 mg Potassium Phos/Sodium Phos (Neutra-Phos) 1 pkt PO BID [facility] Stop: 12/27/18 10:01 Last Admin: 12/24/18 09:15 Dose: 1 pkt Results - Vital Signs Recent Vital Signs: Last Vital Signs Temp 98.1 F 12/24/18 07:00 Pulse 96 H 12/24/18 07:00 Resp 20 12/24/18 07:00 BP 135/56 L 12/24/18 07:00 Pulse Ox 100 12/24/18 07:00 - Labs Result Diagrams: 12/24/18 08:17 12/24/18 08:17 Labs: Laboratory Results - last 24 hr 12/24/18 12/24/18 12/24/18 06:05 08:17 08:17 WBC 11.7 H RBC 3.61 L Hgb 11.1 D Hct 32.6 L MCV 90.4 MCH 30.7 MCHC 33.9 RDW 16.8 H Plt Count 263 MPV 8.7 Neut % (Auto) 77.5 H Lymph % (Auto) 13.9 L [place] % (Auto) 8.3 Eos % (Auto) 0.0 Baso % (Auto) 0.3 Neut # (Auto) 9.1 H Lymph # (Auto) 1.6 [place] # (Auto) 1.0 H Eos # (Auto) 0.0 Baso # (Auto) 0.0 Sodium 135 Potassium 3.6 Chloride 104 Carbon Dioxide 23 Anion Gap 12 BUN 10 Creatinine 0.7 Est GFR ( Amer) > 60 Est GFR (Non-Af Amer) > 60 Random Glucose 119 H Calcium 8.5 L Phosphorus 2.1 L Magnesium 1.8 Total Bilirubin 1.1 AST 35 ALT 23 Alkaline Phosphatase 73 Total Protein 7.3 Albumin 4.1 Globulin 3.1 Albumin/Globulin Ratio 1.3 Urine Opiates Screen Positive H Urine Methadone Screen Negative Ur Barbiturates Screen Negative Ur Phencyclidine Scrn Positive H Ur Amphetamines Screen Negative U Benzodiazepines Scrn Negative U Oth Cocaine Metabols Negative U Cannabinoids Screen Positive H Attending/Attestation - Attestation I have personally seen and examined this patient.: Yes I have fully participated in the care of the patient.: Yes I have reviewed all pertinent clinical information: Yes Notes (Text): 12/24/18 10:03 I have seen and examined patient with GI fellow. Agree with above documentation with the following additions. In brief, this is a 43 year old female without significant medical history who presents to hospital with complaint of abdominal pain and diarrhea which began suddenly yesterday. Prior to this she was in usual state of health. Her symptoms began shortly after a cookout where she consumed hamburgers. She describes generalized abdominal pain, 7/10 intensity which was associated with multiple episodes of nausea, vomiting, diarrhea which later turned into bloody diarrhea. She denies fever/chills, weight loss, sick contacts, recent travel, or antibiotic use. No prior similar episodes or endoscopic evaluation. Abdominal pain, diarrhea - colitis, presumed infectious given clinical scenario - Liquid diet as tolerated - Continue with antibiotic therapy - Obtain stool studies - Patient would benefit from outpatient colonoscopy 6-8 weeks following resolution of acute colitis. Will continue to monitor patient clinical course.
--- NOTE | 2018-12-24 14:41 | CP.PCM.PN ---
Subjective - Date & Time of Evaluation Date of Evaluation: 12/24/18 Time of Evaluation: 10:10 - Subjective Subjective: patient examined today no nausea no vomiting no dizziness no diarrhea no fever no shortness of breath Objective - Vital Signs/Intake and Output Vital Signs (last 24 hours): Temp Pulse Resp BP Pulse Ox 98.1 F 96 H 20 135/56 L 100 12/24/18 07:00 12/24/18 07:00 12/24/18 07:00 12/24/18 07:00 12/24/18 07:00 Intake and Output: 12/24/18 12/24/18 06:59 18:59 Intake Total 300 1000 Balance 300 1000 - Medications Medications: Current Medications Enoxaparin Sodium (Lovenox) 40 mg SC DAILY [facility] Last Admin: 12/24/18 09:15 Dose: 40 mg Metronidazole (Flagyl) 500 mg in 100 mls @ 100 mls/hr IVPB Q8H [facility]; Protocol Last Admin: 12/24/18 13:36 Dose: 100 mls/hr Sodium Chloride (Sodium Chloride 0.9%) 1,000 mls @ 100 mls/hr IV .Q10H [facility] Last Admin: 12/24/18 14:15 Dose: Not Given Ciprofloxacin (Cipro 400mg/200ml Dsw) 400 mg in 200 mls @ 133 mls/hr IVPB Q12H [facility]; Protocol Last Admin: 12/24/18 13:38 Dose: 133 mls/hr Morphine Sulfate (Morphine) 2 mg IVP Q4 PRN PRN Reason: Pain, moderate (4-7) Last Admin: 12/24/18 12:59 Dose: 2 mg Ondansetron HCl (Zofran Inj) 4 mg IVP Q6 PRN PRN Reason: Nausea/Vomiting Last Admin: 12/24/18 13:03 Dose: 4 mg Pantoprazole Sodium (Protonix Inj) 40 mg IVP Q12H [facility] Last Admin: 12/24/18 05:55 Dose: 40 mg Potassium Phos/Sodium Phos (Neutra-Phos) 1 pkt PO BID [facility] Stop: 12/27/18 10:01 Last Admin: 12/24/18 09:15 Dose: 1 pkt - Labs Labs: 12/24/18 08:17 12/24/18 08:17 - Constitutional Appears: Well - Head Exam Head Exam: ATRAUMATIC, NORMAL INSPECTION, NORMOCEPHALIC - Eye Exam Eye Exam: EOMI, Normal appearance, PERRL Pupil Exam: NORMAL ACCOMODATION, PERRL - ENT Exam ENT Exam: Mucous Membranes Moist, Normal Exam - Neck Exam Neck Exam: Full ROM, Normal Inspection. absent: Lymphadenopathy - Respiratory Exam Respiratory Exam: Decreased Breath Sounds - Cardiovascular Exam Cardiovascular Exam: REGULAR RHYTHM, +S1, +S2 - GI/Abdominal Exam GI & Abdominal Exam: Soft, Diminished Bowel Sounds - Rectal Exam Rectal Exam: Deferred - Neurological Exam Neurological Exam: Oriented x3 Assessment and Plan - Assessment and Plan (Free Text) Plan: plan discussed with patient moderate complexity of care cipro flagyl lovenox morphine neutra-phos protonix inj sodium chloride zofran inj medications reviewed labs reviewed vitals reviewed
[2018-12-25] MEDS: Ciprofloxacin 400mg/200ml D5W 400 MG/200 ML BAG IVPB SCH ×2 (01:12→13:46)
[2018-12-25] MEDS: Sodium Chloride 0.9% 1,000 ML IV SCH ×3 (05:11→20:34)
[2018-12-25] MEDS: metroNIDAZOLE IV 500 mg/100 ml 500 MG/100 ML BAG IVPB SCH ×3 (05:12→21:04)
--- NOTE | 2018-12-25 07:52 | CP.PCM.PN ---
<Maddy Thomas - Last Filed: 12/25/18 07:50> Subjective - Date & Time of Evaluation Date of Evaluation: 12/25/18 Time of Evaluation: 07:00 - Subjective Subjective: GI Fellow PGY5 Progress Note Pt seen and evaluated at bedside, pt says abdominal pain is a little better and no more N/v. She started having BM today, yesterday no BM. ROS: A 12pt ROS was negative except as above. Objective - Vital Signs/Intake and Output Vital Signs (last 24 hours): Temp Pulse Resp BP Pulse Ox 98.6 F 79 20 156/92 H 96 12/24/18 23:00 12/24/18 23:00 12/24/18 23:00 12/24/18 23:00 12/24/18 23:00 Intake and Output: 12/25/18 12/25/18 06:59 18:59 Intake Total 900 800 Balance 900 800 - Medications Medications: Current Medications Enoxaparin Sodium (Lovenox) 40 mg SC DAILY [facility] Last Admin: 12/24/18 09:15 Dose: 40 mg Metronidazole (Flagyl) 500 mg in 100 mls @ 100 mls/hr IVPB Q8H [facility]; Protocol Last Admin: 12/25/18 05:12 Dose: 100 mls/hr Sodium Chloride (Sodium Chloride 0.9%) 1,000 mls @ 100 mls/hr IV .Q10H [facility] Last Admin: 12/25/18 05:11 Dose: 100 mls/hr Ciprofloxacin (Cipro 400mg/200ml Dsw) 400 mg in 200 mls @ 133 mls/hr IVPB Q12H [facility]; Protocol Last Admin: 12/25/18 01:12 Dose: 133 mls/hr Morphine Sulfate (Morphine) 2 mg IVP Q4 PRN PRN Reason: Pain, moderate (4-7) Last Admin: 12/25/18 07:08 Dose: 2 mg Nicotine (Nicoderm Cq) 1 patch TD DAILY [facility] Last Admin: 12/24/18 17:04 Dose: 1 patch Ondansetron HCl (Zofran Inj) 4 mg IVP Q6 PRN PRN Reason: Nausea/Vomiting Last Admin: 12/24/18 17:06 Dose: 4 mg Pantoprazole Sodium (Protonix Inj) 40 mg IVP Q12H [facility] Last Admin: 12/25/18 05:12 Dose: 40 mg Potassium Phos/Sodium Phos (Neutra-Phos) 1 pkt PO BID [facility] Stop: 12/27/18 10:01 Last Admin: 12/24/18 17:05 Dose: 1 pkt - Labs Labs: 12/24/18 08:17 12/24/18 08:17 - Constitutional Appears: Non-toxic, No Acute Distress - Head Exam Head Exam: ATRAUMATIC, NORMAL INSPECTION, NORMOCEPHALIC - Eye Exam Eye Exam: EOMI, Normal appearance, PERRL Pupil Exam: PERRL - ENT Exam ENT Exam: Mucous Membranes Moist, Normal Exam - Neck Exam Neck Exam: Full ROM, Normal Inspection - Respiratory Exam Respiratory Exam: Clear to Ausculation Bilateral, NORMAL BREATHING PATTERN - Cardiovascular Exam Cardiovascular Exam: REGULAR RHYTHM, RRR, +S1, +S2 - GI/Abdominal Exam GI & Abdominal Exam: Soft, Tenderness, Normal Bowel Sounds. absent: Distended, Firm, Guarding - Rectal Exam Rectal Exam: Deferred - Neurological Exam Neurological Exam: Alert, Awake, Oriented x3 - Psychiatric Exam Psychiatric exam: Normal Affect, Normal Mood - Skin Skin Exam: Dry, Intact, Normal Color, Warm Assessment and Plan - Assessment and Plan (Free Text) Assessment: 1. Colitis-infectious 2. Abdominal pain 3. N/V/Diarrhea Plan: Continue supportive care with pain control, antiemetic IVF Full liquid diet for breakfast, can advance to regular for lunch if tolerates IV Cipro/Flagyl Stool infectious workup pending, stool WBC negative Needs outpt colonoscopy in 6-8wks Will continue to monitor clinical course <Shayan Broussard Y - Last Filed: 12/25/18 13:47> Objective - Vital Signs/Intake and Output Vital Signs (last 24 hours): Temp Pulse Resp BP Pulse Ox 98.6 F 79 20 156/92 H 96 12/24/18 23:00 12/24/18 23:00 12/24/18 23:00 12/24/18 23:00 12/24/18 23:00 Intake and Output: 12/25/18 12/25/18 06:59 18:59 Intake Total 900 800 Balance 900 800 - Medications Medications: Current Medications Enoxaparin Sodium (Lovenox) 40 mg SC DAILY [facility] Last Admin: 12/25/18 09:03 Dose: 40 mg Metronidazole (Flagyl) 500 mg in 100 mls @ 100 mls/hr IVPB Q8H [facility]; Protocol Last Admin: 12/25/18 13:44 Dose: 100 mls/hr Sodium Chloride (Sodium Chloride 0.9%) 1,000 mls @ 100 mls/hr IV .Q10H [facility] Last Admin: 12/25/18 09:09 Dose: Not Given Ciprofloxacin (Cipro 400mg/200ml Dsw) 400 mg in 200 mls @ 133 mls/hr IVPB Q12H [facility]; Protocol Last Admin: 12/25/18 01:12 Dose: 133 mls/hr Morphine Sulfate (Morphine) 2 mg IVP Q4 PRN PRN Reason: Pain, moderate (4-7) Last Admin: 12/25/18 11:27 Dose: 2 mg Nicotine (Nicoderm Cq) 1 patch TD DAILY [facility] Last Admin: 12/25/18 09:03 Dose: 1 patch Ondansetron HCl (Zofran Inj) 4 mg IVP Q6 PRN PRN Reason: Nausea/Vomiting Last Admin: 12/24/18 17:06 Dose: 4 mg Pantoprazole Sodium (Protonix Inj) 40 mg IVP Q12H [facility] Last Admin: 12/25/18 05:12 Dose: 40 mg Potassium Phos/Sodium Phos (Neutra-Phos) 1 pkt PO BID [facility] Stop: 12/27/18 10:01 Last Admin: 12/25/18 09:02 Dose: 1 pkt - Labs Labs: 12/24/18 08:17 12/24/18 08:17 Attending/Attestation - Attestation I have personally seen and examined this patient.: Yes I have fully participated in the care of the patient.: Yes I have reviewed all pertinent clinical information, including history, physical exam and plan: Yes Notes (Text): 12/25/18 13:46 I have seen and examined patient with GI fellow. No acute events overnight, she is seen resting in bed comfortably. She reports nausea, abdominal pain, and non-bloody emesis following attempted meal consumption but otherwise denies fever/chills, rectal bleeding. Abdominal pain, diarrhea - resolving colitis - Full liquid diet as tolerated - Continue with antibiotic therapy - Follow up stool studies - Anti-emetic therapy PRN - Will continue to monitor patient clinical course
[2018-12-25] MEDS: Potassium & Sodium Phosphate PO SCH ×2 (09:02→17:55)
[2018-12-25] MEDS: Enoxaparin 40 mg Syringe SC SCH (09:03)
[2018-12-25] MEDS: Pantoprazole 40 mg Susp UD PO SCH (20:25)
--- NOTE | 2018-12-25 20:25 | CP.PCM.PN ---
Subjective - Date & Time of Evaluation Date of Evaluation: 12/25/18 - Subjective Subjective: patient examined today no nausea, no dizziness, no fever, no vomiting, no diarrhea no shortness of breath Objective - Vital Signs/Intake and Output Vital Signs (last 24 hours): Temp Pulse Resp BP Pulse Ox 98.4 F 58 L 20 158/96 H 98 12/25/18 15:55 12/25/18 15:55 12/25/18 15:55 12/25/18 15:55 12/25/18 15:55 Intake and Output: 12/25/18 12/26/18 18:59 06:59 Intake Total 900 Balance 900 - Medications Medications: Current Medications Enoxaparin Sodium (Lovenox) 40 mg SC DAILY [facility] Last Admin: 12/25/18 09:03 Dose: 40 mg Metronidazole (Flagyl) 500 mg in 100 mls @ 100 mls/hr IVPB Q8H [facility]; Protocol Last Admin: 12/25/18 13:44 Dose: 100 mls/hr Sodium Chloride (Sodium Chloride 0.9%) 1,000 mls @ 100 mls/hr IV .Q10H [facility] Last Admin: 12/25/18 09:09 Dose: Not Given Ciprofloxacin (Cipro 400mg/200ml Dsw) 400 mg in 200 mls @ 133 mls/hr IVPB Q12H [facility]; Protocol Last Admin: 12/25/18 13:46 Dose: 133 mls/hr Morphine Sulfate (Morphine) 2 mg IVP Q4 PRN PRN Reason: Pain, moderate (4-7) Last Admin: 12/25/18 16:13 Dose: 2 mg Nicotine (Nicoderm Cq) 1 patch TD DAILY [facility] Last Admin: 12/25/18 09:03 Dose: 1 patch Ondansetron HCl (Zofran Inj) 4 mg IVP Q6 PRN PRN Reason: Nausea/Vomiting Last Admin: 12/24/18 17:06 Dose: 4 mg Pantoprazole Sodium (Protonix Susp) 40 mg PO Q12H [facility] Potassium Phos/Sodium Phos (Neutra-Phos) 1 pkt PO BID [facility] Stop: 12/27/18 10:01 Last Admin: 12/25/18 17:55 Dose: 1 pkt - Labs Labs: 12/24/18 08:17 12/24/18 08:17 - Constitutional Appears: Well - Head Exam Head Exam: ATRAUMATIC, NORMAL INSPECTION, NORMOCEPHALIC - Eye Exam Eye Exam: EOMI, Normal appearance, PERRL Pupil Exam: NORMAL ACCOMODATION, PERRL - ENT Exam ENT Exam: Mucous Membranes Moist, Normal Exam - Neck Exam Neck Exam: Full ROM, Normal Inspection. absent: Lymphadenopathy - Respiratory Exam Respiratory Exam: Decreased Breath Sounds - Cardiovascular Exam Cardiovascular Exam: REGULAR RHYTHM, +S1, +S2 - GI/Abdominal Exam GI & Abdominal Exam: Soft, Diminished Bowel Sounds - Rectal Exam Rectal Exam: Deferred - Neurological Exam Neurological Exam: Oriented x3 Assessment and Plan - Assessment and Plan (Free Text) Plan: plan discussed with patient moderate complexity of care medications reviewed labs reviewed vitals reviewed cipro flagyl lovenox morphine neutra-phos protonix inj sodium chloride zofran inj
[2018-12-26] MEDS: Ciprofloxacin 400mg/200ml D5W 400 MG/200 ML BAG IVPB SCH (02:20)
[2018-12-26] MEDS: metroNIDAZOLE IV 500 mg/100 ml 500 MG/100 ML BAG IVPB SCH ×2 (05:28→14:07)
[2018-12-26] MEDS: Pantoprazole 40 mg Susp UD PO SCH (05:31)
--- NOTE | 2018-12-26 07:56 | CP.PCM.PN ---
<Maddy Thomas - Last Filed: 12/26/18 07:51> Subjective - Date & Time of Evaluation Date of Evaluation: 12/26/18 Time of Evaluation: 07:00 - Subjective Subjective: GI Fellow PGY5 Progress Note Pt seen and evaluated at bedside, pt reports feeling better this with one episode of diarrhea this am, wants to eat regular food. ROS: A 12pt ROS was negative except as above. Objective - Vital Signs/Intake and Output Vital Signs (last 24 hours): Temp Pulse Resp BP Pulse Ox 98.2 F 63 20 166/81 H 98 12/25/18 23:00 12/25/18 23:00 12/25/18 23:00 12/25/18 23:00 12/25/18 23:00 - Medications Medications: Current Medications Enoxaparin Sodium (Lovenox) 40 mg SC DAILY [facility] Last Admin: 12/25/18 09:03 Dose: 40 mg Metronidazole (Flagyl) 500 mg in 100 mls @ 100 mls/hr IVPB Q8H [facility]; Protocol Last Admin: 12/26/18 05:28 Dose: 100 mls/hr Sodium Chloride (Sodium Chloride 0.9%) 1,000 mls @ 100 mls/hr IV .Q10H [facility] Last Admin: 12/25/18 20:34 Dose: 100 mls/hr Ciprofloxacin (Cipro 400mg/200ml Dsw) 400 mg in 200 mls @ 133 mls/hr IVPB Q12H [facility]; Protocol Last Admin: 12/26/18 02:20 Dose: 133 mls/hr Morphine Sulfate (Morphine) 2 mg IVP Q4 PRN PRN Reason: Pain, moderate (4-7) Last Admin: 12/26/18 05:26 Dose: 2 mg Nicotine (Nicoderm Cq) 1 patch TD DAILY [facility] Last Admin: 12/25/18 09:03 Dose: 1 patch Ondansetron HCl (Zofran Inj) 4 mg IVP Q6 PRN PRN Reason: Nausea/Vomiting Last Admin: 12/24/18 17:06 Dose: 4 mg Pantoprazole Sodium (Protonix Susp) 40 mg PO Q12H [facility] Last Admin: 12/26/18 05:31 Dose: 40 mg Potassium Phos/Sodium Phos (Neutra-Phos) 1 pkt PO BID [facility] Stop: 12/27/18 10:01 Last Admin: 12/25/18 17:55 Dose: 1 pkt - Labs Labs: 12/24/18 08:17 12/24/18 08:17 - Constitutional Appears: Non-toxic, No Acute Distress - Head Exam Head Exam: ATRAUMATIC, NORMAL INSPECTION, NORMOCEPHALIC - Eye Exam Eye Exam: EOMI, Normal appearance, PERRL Pupil Exam: PERRL - ENT Exam ENT Exam: Mucous Membranes Moist, Normal Exam - Neck Exam Neck Exam: Full ROM, Normal Inspection - Respiratory Exam Respiratory Exam: Clear to Ausculation Bilateral, NORMAL BREATHING PATTERN - Cardiovascular Exam Cardiovascular Exam: REGULAR RHYTHM, RRR, +S1, +S2 - GI/Abdominal Exam GI & Abdominal Exam: Soft, Tenderness, Normal Bowel Sounds - Rectal Exam Rectal Exam: Deferred - Extremities Exam Extremities Exam: Full ROM, Normal Inspection - Back Exam Back Exam: Full ROM, NORMAL INSPECTION - Neurological Exam Neurological Exam: Alert, Awake, Oriented x3 - Psychiatric Exam Psychiatric exam: Normal Affect, Normal Mood - Skin Skin Exam: Dry, Intact, Normal Color, Warm Assessment and Plan - Assessment and Plan (Free Text) Assessment: 1. Colitis-infectious 2. Abdominal pain 3. N/V/Diarrhea Plan: Continue supportive care with pain control, antiemetic IVF Advance to regular for breakfast IV Cipro/Flagyl can change to po abx fo 7 days Stool infectious workup pending, stool WBC negative, ova parasite negative Needs outpt colonoscopy in 6-8wks If tolerates diet can dc home on po abx <Shayan Broussard - Last Filed: 12/26/18 14:20> Objective - Vital Signs/Intake and Output Vital Signs (last 24 hours): Temp Pulse Resp BP Pulse Ox 98.0 F 60 20 136/80 99 12/26/18 07:00 12/26/18 07:00 12/26/18 07:00 12/26/18 07:00 12/26/18 07:00 - Medications Medications: Current Medications Enoxaparin Sodium (Lovenox) 40 mg SC DAILY [facility] Last Admin: 12/26/18 09:14 Dose: 40 mg Metronidazole (Flagyl) 500 mg in 100 mls @ 100 mls/hr IVPB Q8H [facility]; Protocol Last Admin: 12/26/18 14:07 Dose: 100 mls/hr Sodium Chloride (Sodium Chloride 0.9%) 1,000 mls @ 100 mls/hr IV .Q10H [facility] Last Admin: 12/25/18 20:34 Dose: 100 mls/hr Ciprofloxacin (Cipro 400mg/200ml Dsw) 400 mg in 200 mls @ 133 mls/hr IVPB Q12H [facility]; Protocol Last Admin: 12/26/18 02:20 Dose: 133 mls/hr Morphine Sulfate (Morphine) 2 mg IVP Q4 PRN PRN Reason: Pain, moderate (4-7) Last Admin: 12/26/18 10:15 Dose: 2 mg Nicotine (Nicoderm Cq) 1 patch TD DAILY [facility] Last Admin: 12/26/18 09:11 Dose: 1 patch Ondansetron HCl (Zofran Inj) 4 mg IVP Q6 PRN PRN Reason: Nausea/Vomiting Last Admin: 12/24/18 17:06 Dose: 4 mg Pantoprazole Sodium (Protonix Susp) 40 mg PO Q12H [facility] Last Admin: 12/26/18 05:31 Dose: 40 mg Potassium Phos/Sodium Phos (Neutra-Phos) 1 pkt PO BID [facility] Stop: 12/27/18 10:01 Last Admin: 12/26/18 09:14 Dose: 1 pkt - Labs Labs: 12/24/18 08:17 12/24/18 08:17 Attending/Attestation - Attestation I have personally seen and examined this patient.: Yes I have fully participated in the care of the patient.: Yes I have reviewed all pertinent clinical information, including history, physical exam and plan: Yes Notes (Text): 12/26/18 14:17 I have seen and examined patient with GI fellow. No acute events overnight, she is seen resting in bed comfortably. She reports mild post prandial epigastric pain but denies nausea, vomiting, fever/chills. She had one loose bowel mov ement this morning. Abdominal pain - colitis - Advance diet as tolerated - Continue with antibiotic therapy to complete 7 day course - Follow up stool studies - From GI standpoint ok to discharge home with subsequent outpatient follow up. Would suggest outpatient colonoscopy within 6 weeks following resolution of symptoms. Will sign off case, please reconsult as necessary, thank you.
[2018-12-26] MEDS: Enoxaparin 40 mg Syringe SC SCH (09:14)
[2018-12-26] MEDS: Potassium & Sodium Phosphate PO SCH (09:14)
[2018-12-26 14:34] LABS: BLOOD UREA NITROGEN 4 mg/dL (7-17); CALCIUM 8.2 mg/dl (8.6-10.4); GFR NON-AFRICAN AMERICAN > 60
--- NOTE | 2018-12-26 14:56 | CP.PCM.PN ---
Subjective - Date & Time of Evaluation Date of Evaluation: 12/26/18 - Subjective Subjective: patient seen and examined today no dizziness no diarrhea no fever no nausea no vomiting no shortness of breath Objective - Vital Signs/Intake and Output Vital Signs (last 24 hours): Temp Pulse Resp BP Pulse Ox 98.0 F 60 20 136/80 99 12/26/18 07:00 12/26/18 07:00 12/26/18 07:00 12/26/18 07:00 12/26/18 07:00 - Medications Medications: Current Medications Enoxaparin Sodium (Lovenox) 40 mg SC DAILY [facility] Last Admin: 12/26/18 09:14 Dose: 40 mg Metronidazole (Flagyl) 500 mg in 100 mls @ 100 mls/hr IVPB Q8H [facility]; Protocol Last Admin: 12/26/18 14:07 Dose: 100 mls/hr Sodium Chloride (Sodium Chloride 0.9%) 1,000 mls @ 100 mls/hr IV .Q10H [facility] Last Admin: 12/25/18 20:34 Dose: 100 mls/hr Ciprofloxacin (Cipro 400mg/200ml Dsw) 400 mg in 200 mls @ 133 mls/hr IVPB Q12H [facility]; Protocol Last Admin: 12/26/18 02:20 Dose: 133 mls/hr Morphine Sulfate (Morphine) 2 mg IVP Q4 PRN PRN Reason: Pain, moderate (4-7) Last Admin: 12/26/18 14:39 Dose: 2 mg Nicotine (Nicoderm Cq) 1 patch TD DAILY [facility] Last Admin: 12/26/18 09:11 Dose: 1 patch Ondansetron HCl (Zofran Inj) 4 mg IVP Q6 PRN PRN Reason: Nausea/Vomiting Last Admin: 12/24/18 17:06 Dose: 4 mg Pantoprazole Sodium (Protonix Susp) 40 mg PO Q12H [facility] Last Admin: 12/26/18 05:31 Dose: 40 mg Potassium Phos/Sodium Phos (Neutra-Phos) 1 pkt PO BID [facility] Stop: 12/27/18 10:01 Last Admin: 12/26/18 09:14 Dose: 1 pkt - Labs Labs: 12/24/18 08:17 12/26/18 14:08 - Constitutional Appears: Well - Head Exam Head Exam: ATRAUMATIC, NORMAL INSPECTION, NORMOCEPHALIC - Eye Exam Eye Exam: EOMI, Normal appearance, PERRL Pupil Exam: NORMAL ACCOMODATION, PERRL - ENT Exam ENT Exam: Mucous Membranes Moist, Normal Exam - Neck Exam Neck Exam: Full ROM, Normal Inspection. absent: Lymphadenopathy - Respiratory Exam Respiratory Exam: Decreased Breath Sounds - Cardiovascular Exam Cardiovascular Exam: REGULAR RHYTHM, +S1, +S2 - GI/Abdominal Exam GI & Abdominal Exam: Soft, Diminished Bowel Sounds - Rectal Exam Rectal Exam: Deferred - Neurological Exam Neurological Exam: Oriented x3
[2018-12-26] MEDS ORDERED: Potassium Chloride 20 mEq ER Tab PO ONE (15:45)
[2018-12-26 16:53] VITALS: BP 154/85; PULSE 58; RESP 18; TEMP 98.6; O2SAT 100
--- NOTE | 2018-12-26 18:23 | CP.PCM.DIS ---
Provider - Provider Date of Admission: 12/23/18 14:15 Attending physician: Amanda Graves MD Hospital Course - Lab Results Lab Results: Micro Results 12/23/18 11:27 Stool Stool Culture - Final NO SALMONELLA, SHIGELLA OR CAMPYLOBACTER ISOLATED. 12/24/18 11:27 Stool Ova and Parasite Concentrate Exam - Final Most Recent Lab Values WBC 11.7 K/uL (4.8-10.8) H 12/24/18 08:17 RBC 3.61 Mil/uL (3.80-5.20) L 12/24/18 08:17 Hgb 11.1 g/dL (11.0-16.0) D 12/24/18 08:17 Hct 32.6 % (34.0-47.0) L 12/24/18 08:17 MCV 90.4 fL (81.0-99.0) 12/24/18 08:17 MCH 30.7 pg (27.0-31.0) 12/24/18 08:17 MCHC 33.9 g/dL (33.0-37.0) 12/24/18 08:17 RDW 16.8 % (11.5-14.5) H 12/24/18 08:17 Plt Count 263 K/uL (130-400) 12/24/18 08:17 MPV 8.7 fL (7.2-11.7) 12/24/18 08:17 Neut % (Auto) 77.5 % (50.0-75.0) H 12/24/18 08:17 Lymph % (Auto) 13.9 % (20.0-40.0) L 12/24/18 08:17 [place] % (Auto) 8.3 % (0.0-10.0) 12/24/18 08:17 Eos % (Auto) 0.0 % (0.0-4.0) 12/24/18 08:17 Baso % (Auto) 0.3 % (0.0-2.0) 12/24/18 08:17 Neut # (Auto) 9.1 K/uL (1.8-7.0) H 12/24/18 08:17 Lymph # (Auto) 1.6 K/uL (1.0-4.3) 12/24/18 08:17 [place] # (Auto) 1.0 K/uL (0.0-0.8) H 12/24/18 08:17 Eos # (Auto) 0.0 K/uL (0.0-0.7) 12/24/18 08:17 Baso # (Auto) 0.0 K/uL (0.0-0.2) 12/24/18 08:17 Sodium 136 mmol/L (132-148) 12/26/18 14:08 Potassium 3.2 mmol/L (3.6-5.2) L 12/26/18 14:08 Chloride 102 mmol/L (98-107) 12/26/18 14:08 Carbon Dioxide 25 mmol/L (22-30) 12/26/18 14:08 Anion Gap 12 (10-20) 12/26/18 14:08 BUN 4 mg/dL (7-17) L 12/26/18 14:08 Creatinine 0.6 mg/dL (0.7-1.2) L 12/26/18 14:08 Est GFR ( Amer) > 60 12/26/18 14:08 Est GFR (Non-Af Amer) > 60 12/26/18 14:08 Random Glucose 89 mg/dL (65-105) D 12/26/18 14:08 Calcium 8.2 mg/dl (8.6-10.4) L 12/26/18 14:08 Phosphorus 2.1 mg/dL (2.5-4.5) L 12/24/18 08:17 Magnesium 1.8 mg/dL (1.6-2.3) 12/24/18 08:17 Total Bilirubin 1.1 mg/dL (0.2-1.3) 12/24/18 08:17 AST 35 U/L (14-36) 12/24/18 08:17 ALT 23 U/L (9-52) 12/24/18 08:17 Alkaline Phosphatase 73 U/L (38-126) 12/24/18 08:17 Total Protein 7.3 g/dL (6.3-8.3) 12/24/18 08:17 Albumin 4.1 g/dL (3.5-5.0) 12/24/18 08:17 Globulin 3.1 gm/dL (2.2-3.9) 12/24/18 08:17 Albumin/Globulin Ratio 1.3 (1.0-2.1) 12/24/18 08:17 Lipase 167 U/L (23-300) 12/23/18 08:27 Urine Color Yellow (YELLOW) 12/23/18 08:27 Urine Clarity Turbid (Clear) 12/23/18 08:27 Urine pH 5.0 (5.0-8.0) 12/23/18 08:27 Ur Specific [place] 1.030 (1.003-1.030) 12/23/18 08:27 Urine Protein 2+ mg/dL (NEGATIVE) H 12/23/18 08:27 Urine Glucose (UA) Normal mg/dL (Normal) 12/23/18 08:27 Urine Ketones 1+ mg/dL (NEGATIVE) H 12/23/18 08:27 Urine Blood 2+ (NEGATIVE) H 12/23/18 08:27 Urine Nitrate Negative (NEGATIVE) 12/23/18 08:27 Urine Bilirubin Negative (NEGATIVE) 12/23/18 08:27 Urine Urobilinogen Normal mg/dL (0.2-1.0) 12/23/18 08:27 Ur Leukocyte Esterase Neg Aminata/uL (Negative) 12/23/18 08:27 Urine RBC (Auto) 43 /hpf (0-3) H 12/23/18 08:27 Ur Squamous Epith Cells 1 /hpf (0-5) 12/23/18 08:27 Amorphous Sediment Moderate /ul (<OCC) H 12/23/18 08:27 Urine HCG, Qual Negative (NEGATIVE) 12/23/18 08:27 Stool Leukocytes, Qual Negative (NEGATIVE) 12/23/18 11:27 Urine Opiates Screen Positive (NEGATIVE) H 12/24/18 06:05 Urine Methadone Screen Negative (NEGATIVE) 12/24/18 06:05 Ur Barbiturates Screen Negative (NEGATIVE) 12/24/18 06:05 Ur Phencyclidine Scrn Positive (NEGATIVE) H 12/24/18 06:05 Ur Amphetamines Screen Negative (NEGATIVE) 12/24/18 06:05 U Benzodiazepines Scrn Negative (NEGATIVE) 12/24/18 06:05 U Oth Cocaine Metabols Negative (NEGATIVE) 12/24/18 06:05 U Cannabinoids Screen Positive (NEGATIVE) H 12/24/18 06:05 Alcohol, Quantitative < 10 mg/dl (0-10) 12/23/18 08:27 Discharge Exam - Head Exam Head Exam: ATRAUMATIC, NORMAL INSPECTION, NORMOCEPHALIC Discharge Plan - Discharge Medications Prescriptions: Ciprofloxacin [Cipro] 500 mg PO Q12 #10 tab metroNIDAZOLE [Flagyl] 500 mg PO Q8 #15 tab Nicotine 21 mg/24 hr [Nicoderm Cq] 1 patch TD DAILY #7 patch traMADol [Ultram] 50 mg PO Q8 PRN #10 tab PRN Reason: Pain, Severe (8-10) - Follow Up Plan Condition: FAIR Disposition: HOME/ ROUTINE Instructions: Ciprofloxacin (Systemic), Quitting Smoking for Older Adults, Low Cholesterol, Saturated Fat, and Trans Fat Diet , Metronidazole (Systemic), Acute Abdomen (Belly Pain), Adult (DC), Nausea and Vomiting, Adult (DC), Nicotine, Tramadol Additional Instructions: Please follow up with Dr. Santana office tomorrow Please continue antibiotics for 5 more days Please follow up with office after 8 weeks for outpatient colonoscopy Please continue medication as per med. rec. Referrals: Shayan Broussard MD [Staff Provider] - Patricia Graves MD [Staff Provider] -
== END 2018-12-26 17:17 | disposition home or self-care (01) | DRG 392 ==
LOC: C.ER 07:06 → C.9E 14:15 → C.6T 14:47
PROVIDERS: ADMIT Internal Medicine Nephrology; ATTEND Internal Medicine Nephrology
DX: A09 Infectious gastroenteritis and colitis, unspecified (principal); J45.909 Unspecified asthma, uncomplicated; Z87.891 Personal history of nicotine dependence; Z90.49 Acquired absence of other specified parts of digestive tract